=== PATIENT | male | born 1980 | race Caucasian/White ===

== ENCOUNTER 2021-11-12 07:36 | Emergency (ER) | payer SELFPAY ==
[~2021-11-12 07:36] MED LIST: BENZONATATE200 MG PO; PROAIR HFA8.5 GM INH
[2021-11-12] MEDS ORDERED: MEDROL DOSEPAK 24 MG PO (09:10)
[2021-11-12] MEDS ORDERED: PROVENTIL HFA6.7 GM INH (09:10)
[2021-11-12] MEDS ORDERED: MUCINEX600 MG PO (09:10)
[2021-11-12] MEDS ORDERED: ZYRTEC10 MG PO (09:10)
== END 2021-11-12 09:15 | disposition home or self-care (01) ==
LOC: ER1 07:36
DX: J06.9 Acute upper respiratory infection, unspecified (principal); F17.200 Nicotine dependence, unspecified, uncomplicated; Z20.822 Contact with and (suspected) exposure to COVID-19; Z88.8 Allergy status to other drugs, medicaments and biological substances
CPT/HCPCS: 0240U; 71046; 99283